=== PATIENT | female | born 1955 | race Caucasian/White ===

== ENCOUNTER 2017-05-21 17:23 | Emergency (ER) | payer BC ==
[2017-05-21 17:42] VITALS: BP 119/74
--- NOTE | 2017-05-21 17:52 | EDM.PDOC ---
ED HPI GENERAL MEDICAL PROBLEM - General Chief Complaint: Laceration Stated Complaint: HEAD LAC Time Seen by Provider: 05/21/17 17:37 Source of Information: Reports: Patient History Limitations: Reports: No Limitations - History of Present Illness INITIAL COMMENTS - FREE TEXT/NARRATIVE: 61-year-old female presents to the ED with an acute laceration to her left lower forehead just above her eyebrow. States she bent over and struck the sharp corner of a countertop with resultant 1.2 cm laceration to the forehead.. Active bleeding and she held pressure on it for half an hour to get it to stop bleeding. She is uncertain about her last tetanus shot. She has no blood dyscrasia or bleeding problems. Onset: Today Onset Date: 05/21/17 Onset Time: 16:20 Duration: Minutes: Location: Reports: Face (Left lower forehead) Quality: Reports: Ache Severity: Mild Improves with: Reports: None Worsens with: Reports: None Context: Reports: Trauma. Denies: Activity, Exercise, Lifting, Sick Contact Associated Symptoms: Reports: No Other Symptoms forehead Pain Score (Numeric/FACES): 3 - Related Data Allergies Allergy/AdvReac Type Severity Reaction Status Date / Time prochlorperazine Allergy Anaphylactic Verified 05/21/17 17:42 [From Compazine] Shock Home Meds: Home Meds Estradiol [Estrogel] 50 gm TD ASDIRECTED 05/21/17 [History] Past Medical History - Past Health History Medical/Surgical History: Denies Medical/Surgical History LMP (Approximate): Other (See Below) (Postmenopausal symptoms with estrogen replacement.) Social & Family History - Family History Family Medical History: Noncontributory - Tobacco Use Smoking Status *Q: Never Smoker - Caffeine Use Caffeine Use: Reports: None - Recreational Drug Use Recreational Drug Use: No - Living Situation & Occupation Living situation: Reports: Occupation: Employed ED ROS GENERAL - Review of Systems Review Of Systems: See Below Constitutional: Reports: No Symptoms HEENT: Reports: No Symptoms Respiratory: Reports: No Symptoms Cardiovascular: Reports: No Symptoms Endocrine: Reports: No Symptoms GI/Abdominal: Reports: No Symptoms : Reports: Other (Postmenopausal symptoms with hot flashes.) Musculoskeletal: Reports: No Symptoms Skin: Reports: Other (Does receive Botox shots to facial areas.) Neurological: Reports: No Symptoms Psychiatric: Reports: No Symptoms Hematologic/Lymphatic: Reports: No Symptoms Immunologic: Reports: No Symptoms ED EXAM, SKIN/RASH Exam: See Below Exam Limited By: No Limitations General Appearance: Alert, WD/WN, Anxious, Mild Distress Head: Other (Has a 1.2 cm laceration just above the left eyebrow medial face) Neck: Normal Inspection, Supple, Non-Tender, Full Range of Motion. No: Lymphadenopathy (L), Lymphadenopathy (R) Respiratory/Chest: No Respiratory Distress, Lungs Clear, Normal Breath Sounds, No Accessory Muscle Use Cardiovascular: Normal Peripheral Pulses, Regular Rate, Rhythm, No Edema, No Gallop, No Murmur ED SKIN PROCEDURES - Laceration/Wound Repair Left Lower Face Lac/Wound length In cm: 1.2 (Linear laceration lower left forehead above eyebrow) Appearance: Subcutaneous, Clean Distal NVT: Neuro & Vascular Intact Anesthetic Type: Local Local Anesthesia - Lidocaine (Xylocaine): 1% Plain Local Anesthetic Volume: 1cc Skin Prep: Saline Suture Size: other (5-0) # of Sutures: 2 Suture Type: Nylon, Interrupted, Simple Course - Vital Signs Last Recorded V/S: Last Vital Signs Temp 36.7 C 05/21/17 17:30 Pulse 79 05/21/17 17:30 Resp 18 05/21/17 17:30 BP 119/74 05/21/17 17:30 Pulse Ox 98 05/21/17 17:30 - Orders/Labs/Meds Orders: Active Orders 24 hr Category Date Time Status Vaccines to be Administered [RC] PER UNIT ROUTINE Care 05/21/17 18:01 Ordered Diphth,Pertuss(Acell),Tet Vac [Adacel] Med 05/21/17 18:01 Once 0.5 ml IM .ONCE ONE - Radiology Interpretation Free Text/Narrative:: 61-year-old female presents to the ED with a 1.2 cm laceration left lower forehead above the eyebrow. Puncture wound from a quarter of a sharp counter top. Was cleansed and sutured 2 with 5-0 Ethilon suture. The edges will need to be removed in 7 days time decision made to pursue tetanus toxoid as she can' t remember exactly when she had her last shot. She will therefore be given a TDap shot Departure - Departure Time of Disposition: 18:04 Disposition: Home, Self-Care 01 Condition: Fair Clinical Impression: Facial laceration Qualifiers: Encounter type: initial encounter Qualified Code(s): S01.81XA - Laceration without foreign body of other part of head, initial encounter - Discharge Information Referrals: PCP,Not In Area [Primary Care Provider] - Forms: ED Department Discharge Additional Instructions: Evaluation in the emergency room today in regards to laceration to the left lower forehead. Was cleansed and sutured 2 under local anesthetic. Treatment at home as daily cleanse the wound with soap and water. Showering is okay. Then apply topical antibodies such as bacitracin or Polysporin primarily at bedtime. Sutures will need to be removed in 7 days time. Her tetanus diphtheria and pertussis vaccine was updated today and is good for the next 10 years. - My Orders Last 24 Hours: My Active Orders 05/21/17 18:01 Vaccines to be Administered [RC] PER UNIT ROUTINE Diphth,Pertuss(Acell),Tet Vac [Adacel] 0.5 ml IM .ONCE ONE - Assessment/Plan Last 24 Hours: My Active Orders 05/21/17 18:01 Vaccines to be Administered [RC] PER UNIT ROUTINE Diphth,Pertuss(Acell),Tet Vac [Adacel] 0.5 ml IM .ONCE ONE
[2017-05-21] MEDS ORDERED: Diphtheria,Pertussis(Acell),Tetanus Vaccine 0.5 ML SDV IM ONE (18:01)
== END 2017-05-21 18:27 | disposition home or self-care (01) ==
LOC: JD.ED 17:23
DX: S01.81XA Laceration without foreign body of other part of head, initial encounter (principal); Z23 Encounter for immunization; W26.9XXA Contact with unspecified sharp object(s), initial encounter
CPT/HCPCS: 12011; 90471; 90715; 99282-25; 99283-25